=== PATIENT | female | born 1930 | race Caucasian/White ===

== ENCOUNTER 2016-10-12 16:11 | Emergency (ER) | payer MEDICARE, BC ==
[~2016-10-12] VITALS: Ht 167.6 cm; Wt 65.8 kg
--- NOTE | 2016-10-12 16:26 | NUR ---
DR BABIN AT THE BEDSIDE FOR EVAL AND EXAM.
[2016-10-12] MEDS ORDERED: SULFACETAMIDE SOD 10% OPHT DR 15 ML BOTTLE OP ONE (16:30)
[2016-10-12 16:41] VITALS: BP 144/54
[2016-10-12] MEDS ORDERED: SULFACETAMIDE SOD 10% OPHT DR 15 ML BOTTLE ONE (16:41)
--- NOTE | 2016-10-12 16:41 | NUR ---
Patient discharged to home in stable conditon. Written and verbal after care instructions given. Patient verbalizes understanding of instructions.
== END 2016-10-12 16:42 | disposition home or self-care (01) ==
LOC: ER 16:13
DX: H10.9 Unspecified conjunctivitis (principal)
CPT/HCPCS: A4663